=== PATIENT | male | born 2000 | race Hispanic/Latino ===

== ENCOUNTER 2022-06-12 20:37 | Emergency (ER) | payer OTHER ==
[~2022-06-12] VITALS: Ht 175.3 cm; Wt 63.6 kg
[2022-06-12] MEDS ORDERED: CEPH500C PO (20:44)
[2022-06-12] MEDS ORDERED: TETRACAINE 0.5% OPHTH SOLN 4ML OD ONE (23:15)
[2022-06-12] MEDS ORDERED: ERYTHROMYCIN OPHTH OINT OD ONE (23:35)
[2022-06-12] MEDS ORDERED: ERYT5OIN25 OD (23:36)
[2022-06-12 23:46] VITALS: BP 123/68
== END 2022-06-12 23:48 | disposition home or self-care (01) ==
LOC: M ED 20:37
DX: H00.021 Hordeolum internum right upper eyelid (principal); H00.022 Hordeolum internum right lower eyelid; H10.33 Unspecified acute conjunctivitis, bilateral

== ENCOUNTER 2023-04-26 19:32 | Emergency (ER) | payer OTHER ==
[~2023-04-26] VITALS: Ht 175.3 cm; Wt 62.1 kg
[~2023-04-26 19:32] MED LIST: CEPH500C PO; ERYT5OIN25 OD
[2023-04-26 20:09] LABS: BASO % 0.4 % (0.0-1.0); EOS % 0.6 % (0.0-3.0); HEMATOCRIT 44.2 % (42.0-52.0); HEMOGLOBIN 15.1 g/dl (13.5-17.5); LYMPH # 2.7 10^3/uL (1.5-5.0); LYMPH % 38.6 % (24.0-44.0); MEAN CORPUSCULAR HEMOGLOBIN 29.9 pg (27.0-33.0); MEAN CORPUSCULAR HGB CONC 34.2 g/dl (32.0-36.5); MEAN CORPUSCULAR VOLUME 87.5 fl (80.0-96.0); MONO # 0.6 10^3/uL (0.0-0.8); MONO % 7.8 % (2.0-8.0); NEUTROPHILS # 3.7 10^3/uL (1.5-8.5); NEUTROPHILS % 52.3 % (36.0-66.0); PLATELET COUNT, AUTOMATED 342 10^3/uL (150-450); RED BLOOD COUNT 5.05 10^6/uL (4.30-6.10); WHITE BLOOD COUNT 7.1 10^3/uL (4.0-10.0)
[2023-04-26 20:28] LABS: LIPASE 34 U/L (12-53)
[2023-04-26 20:31] LABS: ALBUMIN 4.6 G/DL (3.2-5.2); ALKALINE PHOSPHATASE 89 U/L (46-116); ALT/SGPT 16 U/L (7.0-40); AST/SGOT 13 U/L (<34); BILIRUBIN,DIRECT 0.5 MG/DL (<0.4); BILIRUBIN,TOTAL 1.6 MG/DL (0.3-1.2); BLOOD UREA NITROGEN 13 MG/DL (9-23); CALCIUM LEVEL 9.7 MG/DL (8.5-10.1); CARBON DIOXIDE LEVEL 26 MMOL/L (20-31); CHLORIDE LEVEL 105 MMOL/L (98-107); CK-MB VALUE MASS 1.2 NG/ML (<3.6); CREATININE FOR GFR 0.94 MG/DL (0.70-1.30); GLOMERULAR FILTRATION RATE > 60.0 (>60); GLUCOSE, FASTING 98 MG/DL (60-100); SODIUM LEVEL 140 MMOL/L (136-145); TOTAL PROTEIN 7.5 G/DL (5.7-8.2)
[2023-04-26 20:36] LABS: CPK CREATINE PHOSPHOKINASE 175 U/L (46-171); MB/CK RELATIVE INDEX 0.68 (< OR =4)
[2023-04-26 22:02] LABS: RSV AMPLIFICATION NEGATIVE (NEGATIVE)
[2023-04-26 23:26] LABS: CK-MB VALUE MASS 1.4 NG/ML (<3.6)
[2023-04-26 23:30] LABS: CPK CREATINE PHOSPHOKINASE 161 U/L (46-171); MB/CK RELATIVE INDEX 0.86 (< OR =4)
[2023-04-27 08:19] VITALS: BP 109/70; TEMP 97.9; O2SAT 98
== END 2023-04-27 08:49 | disposition left against medical advice (07) ==
LOC: M ED 19:32
DX: R07.9 Chest pain, unspecified (principal); Z53.21 Procedure and treatment not carried out due to patient leaving prior to being seen by health care provider